=== PATIENT | male | born 1980 | race Caucasian/White ===

== ENCOUNTER 2021-12-03 01:26 | Emergency (ER) | payer BC ==
[~2021-12-03] VITALS: Ht 185.4 cm; Wt 143.2 kg
[2021-12-03] MEDS ORDERED: ALLE12TA31 PO (01:37)
[2021-12-03] MEDS ORDERED: predniSONE 20 MG TAB PO ONE (02:40)
[2021-12-03] MEDS ORDERED: PRED20TA PO (04:27)
[2021-12-03 04:30] VITALS: BP 157/95
== END 2021-12-03 04:43 | disposition home or self-care (01) ==
LOC: M ED 01:26
DX: T78.40XA Allergy, unspecified, initial encounter (principal); E11.9 Type 2 diabetes mellitus without complications; Z79.84 Long term (current) use of oral hypoglycemic drugs; Z91.013 Allergy to seafood; Z91.048 Other nonmedicinal substance allergy status
CPT/HCPCS: 99284; J7512